=== PATIENT | female | born 1975 | race African-American/Black ===

== ENCOUNTER 2019-09-14 13:05 | Emergency (ER) | payer BC, OTHER ==
[~2019-09-14] VITALS: Ht 160 cm; Wt 86.2 kg
[~2019-09-14 13:05] MED LIST: LORTAB 5 MG/5001 TA1 PO; NOHOMEMEDICATIONS; ULTRAM 50MG TAB50 MG PO; VENTOLIN17 GM INH
[2019-09-14] MEDS ORDERED: IBUPROFEN 800800 M1 PO (14:22)
[2019-09-14] MEDS ORDERED: BACTRIM DS TAB1 EACH PO (14:22)
[2019-09-14] MEDS ORDERED: ZOFRAN ODT4 MG PO (14:27)
[2019-09-14 14:44] VITALS: BP 129/64
== END 2019-09-14 14:45 | disposition home or self-care (01) ==
LOC: ER 13:05
DX: L02.412 Cutaneous abscess of left axilla (principal); Z88.1 Allergy status to other antibiotic agents; Z88.0 Allergy status to penicillin